=== PATIENT | female | born 1965 | race Caucasian/White ===

== ENCOUNTER 2018-10-29 18:59 | Emergency (ER) | payer OTHER ==
[~2018-10-29] VITALS: Ht 160 cm; Wt 95.3 kg
[2018-10-29 19:00] VITALS: BP 123/73
--- NOTE | 2018-10-29 19:39 | NUR ---
PATIENT AMBULATED TO ER BED 1.
--- NOTE | 2018-10-29 19:44 | NUR ---
PT BIB FOR RASH X1 DAY. PT STATES SHE FIRST NOTICED RASH YESTERDAY THAT DEVELOPED IN SACRAL AREA AND IS SPREADING OVER R BUTTOCKS. LIGHT RED PATCHES WITH SMALL RAISED BUMPS PRESENT OVER SACRAL AND R BUTTOCKS PRESENT. PT REPORTS SEVERE BURNING STABING PAIN AT 10/10 WITH RASH. PT DOES NOT KNOW IF SHE HAD CHICKEN POX, PT DENIES SHINGLES VACCINE. ER MD TO SEE PT. MEDHX: R SHOULDER TENDENITIS RX:NONE
[2018-10-29 20:25] VITALS: BP 119/82
--- NOTE | 2018-10-29 20:25 | NUR ---
Patient discharged with v/s stable. Written and verbal after care instructions given and explained. Patient alert, oriented and verbalized understanding of instructions. Ambulatory with steady gait. All questions addressed prior to discharge. ID band removed. Patient advised to follow up with PMD. Rx of MOTRIN 800MG, PREDNISONE 50MG AND ACYCLOVIR given. Patient educated on indication of medication including possible reaction and side effects. Opportunity to ask questions provided and answered.
== END 2018-10-29 20:25 | disposition home or self-care (01) ==
LOC: MED 18:59
DX: B02.9 Zoster without complications (principal)
CPT/HCPCS: 99283